=== PATIENT | male | born 1985 | race Two or more races ===

== ENCOUNTER 2018-04-20 21:40 | Emergency (ER) | payer SELFPAY ==
[~2018-04-20] VITALS: Ht 172.7 cm; Wt 59.0 kg
--- NOTE | 2018-04-20 23:43 | Diagnostic Imaging Report ---
EXAM: CT Head Without Intravenous Contrast CLINICAL HISTORY: AMS TECHNIQUE: Axial computed tomography images of the head/brain without intravenous contrast. CTDI is 70.38 mGy and DLP is 1513.1 mGy-cm. One or more of the following dose reduction techniques were used: automated exposure control, adjustment of the mA and/or kV according to patient size, use of iterative reconstruction technique. COMPARISON: No relevant prior studies available. FINDINGS: Brain: No intracranial hemorrhage or mass effect. Ventricles: Unremarkable. No ventriculomegaly. Bones/joints: Right periorbital and left parietal scalp contusions. Soft tissues: Unremarkable. Sinuses: Mild right maxillary sinus mucosal thickening. Mastoid air cells: Unremarkable as visualized. No mastoid effusion. IMPRESSION: No acute brain or skull injury
[2018-04-21 01:53] VITALS: BP 116/76
[2018-04-21 03:00] VITALS: BP 124/74
[2018-04-21 05:00] VITALS: BP 118/67
[2018-04-21 05:44] VITALS: BP 118/67
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
== END 2018-04-21 05:44 | disposition home or self-care (01) ==
LOC: EDBD 21:40 → EMR 22:01
DX: F10.929 Alcohol use, unspecified with intoxication, unspecified (principal); R51 Headache
CPT/HCPCS: 70450; 99284